=== PATIENT | female | born 1970 | race Caucasian/White ===

== ENCOUNTER 2020-12-19 16:32 | Inpatient (IN) | payer OTHER ==
[~2020-12-19] VITALS: Ht 144.8 cm; Wt 86.2 kg
--- NOTE | 2020-12-19 16:50 | NUR ---
BIB [facility] FOR L SIDED CHEST PAIN SINCE YESTERDAY. ASA 162 AND NITRO X 2 GIVEN IN FIELD. PATIENT A/OX4, BREATHING EVEN AND UNLABORED, NO SOB NOTED. ATTACHED TO THE PLATFORM MATERIAL HANDLER MANAGER.
[2020-12-19] MEDS ORDERED: IV NS 0.9% 1,000 ML IV ONE (17:00)
[2020-12-19] MEDS ORDERED: NITROGLYCERIN PACKET 1 GM PACKET TOP ONE (17:00)
[2020-12-19] MEDS ORDERED: ASPIRIN 325 MG TABLET PO ONE (17:00)
[2020-12-19] MEDS ORDERED: METF-881 PO (17:03)
[2020-12-19] MEDS ORDERED: GLIP10TA11 PO (17:03)
[2020-12-19] MEDS ORDERED: NITROGLYCERIN PACKET 1 GM PACKET ONE (17:03)
[2020-12-19] MEDS ORDERED: LISI-768 PO (17:03)
[2020-12-19] MEDS ORDERED: ATOR40TA PO (17:03)
[2020-12-19] MEDS ORDERED: ASPIRIN 325 MG TABLET ONE (17:03)
--- NOTE | 2020-12-19 17:26 | NUR ---
IV LINE ESTABLISHED, BLOOD DRAWN AND SENT TO LAB
[2020-12-19] MEDS ORDERED: ASPIRIN 81 MG TAB.CHEW PO ONE (17:30)
[2020-12-19 17:32] LABS: BASOPHILS % (AUTO) 0.5 % (0.0-2.0); EOSINOPHILS % (AUTO) 3.4 % (0.0-6.0); HEMATOCRIT 43 % (33-45); HEMOGLOBIN 14.1 g/dL (11.5-14.8); LYMPHOCYTES # (AUTO) 2.5 /CMM (0.8-4.8); LYMPHOCYTES % (AUTO) 36.9 % (20.0-44.0); MEAN CORPUSCULAR HGB CONC 33 g/dl (31.0-36.0); MEAN CORPUSCULAR VOLUME 86 fL (82-100); MONOCYTES # (AUTO) 0.4 /CMM (0.1-1.30); MONOCYTES % (AUTO) 5.9 % (2.0-12.0); NEUTROPHILS # (AUTO) 3.6 /CMM (1.8-8.9); NEUTROPHILS % (AUTO) 53.3 % (43.0-81.0); PLATELET COUNT (AUTO) 269 /CMM (150-450); RED BLOOD CELL COUNT(AUTO) 5.05 MIL/uL (4.0-5.2); WHITE BLOOD COUNT (AUTO) 6.7 K/uL (4.3-11.0)
[2020-12-19 17:42] LABS: CALCIUM, SERUM 8.6 mg/dL (8.5-10.1); CARBON DIOXIDE 28 mmol/L (21-32); CHLORIDE 104 mmol/L (98-107); CREATININE 0.5 mg/dL (0.6-1.3); GLUCOSE 162 mg/dL (74-106); SODIUM SERUM 141 mmol/L (136-145); UREA NITROGEN, BLOOD 9 mg/dL (7-18)
[2020-12-19] MEDS ORDERED: ASPIRIN 81 MG TAB.CHEW ONE ×2 (17:42→17:46)
[2020-12-19] MEDS ORDERED: ACETAMINOPHEN 325 MG TABLET PO PRN (18:30)
[2020-12-19] MEDS ORDERED: MAGNESIUM HYDROXIDE 30 ML UDC PO PRN (18:30)
[2020-12-19] MEDS ORDERED: Z GUARD REMEDY 2 OZ OINT TP PRN (18:30)
[2020-12-19] MEDS ORDERED: NITROGLYCERIN 0.4 MG/TAB BOTTLE SL PRN (18:30)
[2020-12-19] MEDS ORDERED: MAG HYDROX/AL HYDROX/SIMETH 30 ML UDC PO PRN (18:30)
[2020-12-19] MEDS ORDERED: ONDANSETRON HCL/PF 4 MG/2 ML VIAL IVP PRN (18:30)
[2020-12-19] MEDS ORDERED: HYDROMORPHONE INJ 2 MG/ML DISP.SYRIN IV PRN (18:30)
[2020-12-19] MEDS ORDERED: ZOLPIDEM TARTRATE 5 MG TABLET PO PRN (18:30)
--- NOTE | 2020-12-19 19:50 | NUR ---
TRIED GIVING REPORT, NURSING STAFF IS BUSY AT THE MOMENT, WILL RECEIVE CALL BACK.
--- NOTE | 2020-12-19 20:16 | NUR ---
REPORT GIVEN TO PANCHO FRASER FOR BELKIS.
--- NOTE | 2020-12-19 20:25 | NUR ---
CARLITO RECEIVED FROM ER VIA MARISEL A 50 Y/O FEMALE CC OF CHEST PAIN SINCE YESTERDAY. ALERT/ORIENTED X4, SPEAKS MAORI FLUENTLY. NO CHEST PAIN OF THIS TIME. STATED LAST MEAL WAS BREAKFAST. DAUGHTER TO BRING FOOD. HL RIGHT AC 18 GAUGE PATENT. NO SOB. WAS 99% ON RA. V/S STABLE. HERE FOR OBSERVATION SR ON THE MONITOR. ABLE TO PROVIDE ADMISSION INFORMATION. ORIENTED TO ROOM FACILITIES. SAFETY PRECAUTIONS EMPHASIZED WELL UNDERSTOOD. CALL LIGHT WITHIN REACH.
[2020-12-19 22:39] VITALS: BP 140/71
[2020-12-19] MEDS: HYDROCODONE/APAP 5/325MG TABLET PO PRN (23:43)
[2020-12-20 00:07] VITALS: BP 126/70
--- NOTE | 2020-12-20 00:13 | NUR ---
TELERN REMAINS SR ON THE MONITOR. NO CHEST PAIN EXCEPT HEADACHE. NORCO 1 TAB PO ADMINISTERED. BEDREST INSTRUCTED. CLOSELY WATCHED.
--- NOTE | 2020-12-20 03:24 | NUR ---
TELERN SLEEPING APPEARS COMFORTABLE. REMAINS SR ON THE MONITOR
[2020-12-20 04:20] VITALS: BP 126/59
[2020-12-20 06:31] LABS: BASOPHILS % (AUTO) 0.6 % (0.0-2.0); EOSINOPHILS % (AUTO) 3.4 % (0.0-6.0); HEMATOCRIT 40 % (33-45); HEMOGLOBIN 13.1 g/dL (11.5-14.8); LYMPHOCYTES # (AUTO) 2.4 /CMM (0.8-4.8); LYMPHOCYTES % (AUTO) 34.5 % (20.0-44.0); MEAN CORPUSCULAR HGB CONC 33 g/dl (31.0-36.0); MEAN CORPUSCULAR VOLUME 86 fL (82-100); MONOCYTES # (AUTO) 0.5 /CMM (0.1-1.30); MONOCYTES % (AUTO) 6.4 % (2.0-12.0); NEUTROPHILS # (AUTO) 3.9 /CMM (1.8-8.9); NEUTROPHILS % (AUTO) 55.1 % (43.0-81.0); PLATELET COUNT (AUTO) 225 /CMM (150-450); RED BLOOD CELL COUNT(AUTO) 4.68 MIL/uL (4.0-5.2); WHITE BLOOD COUNT (AUTO) 7.1 K/uL (4.3-11.0)
[2020-12-20 06:47] LABS: CALCIUM, SERUM 8.5 mg/dL (8.5-10.1); CREATININE 0.6 mg/dL (0.6-1.3); MAGNESIUM 1.6 mg/dL (1.8-2.4); PHOSPHORUS 4.6 mg/dL (2.5-4.9); POTASSIUM 3.7 mmol/L (3.5-5.1)
[2020-12-20 08:00] VITALS: BP_SYST 119; BP_SYST 120; BP_DIAS 67; BP_DIAS 73
--- NOTE | 2020-12-20 08:00 | NUR ---
RN OPENING NOTE RECEIVED PATIENT IN BED, AO X 4, ABLE TO RESPONDS ALL STIMULI. DENIES CHEST PAIN OR DISTRESS. SKIN IS WARM TO TOUCH KEEP CLEAN/DRY, INTACT IV SITE. RESPIRATORY EVEN AND UNLABORED IN ROOM AIR, NO DISTRESS OBSERVED. KEPT ELEVATED HOB FOR ENSURE AIRWAY AND ASPIRATION PRECAUTION, ALSO LOWEST BED POSITION FOR SAFETY. CALL LIGHT WITHIN REACH, WILL CONTINUE TO MONITOR.
[2020-12-20] MEDS ORDERED: ATORVASTATIN 40 MG TABLET PO SCH (09:00)
[2020-12-20] MEDS ORDERED: LISINOPRIL (5MG) 5 MG TABLET PO SCH (09:00)
--- NOTE | 2020-12-20 09:32 | NUR ---
PATIENT RECEIVED CTA ORDER AND OBTAINED SIGN OF CONSENT.
[2020-12-20] MEDS ORDERED: NITROGLYCERIN 0.4 MG/TAB BOTTLE ONE (10:22)
[2020-12-20] MEDS ORDERED: METOPROLOL TARTRATE INJ 5 MG/5 ML AMPUL ONE ×4 (10:22→11:29)
[2020-12-20] MEDS ORDERED: CT SWABBABLE VALVE TRANS SET 1 EA INFUS.SET MC ONE (10:22)
[2020-12-20] MEDS ORDERED: IOHEXOL-350 100 ML VIAL IV ONE (10:22)
[2020-12-20] MEDS ORDERED: IV NS 0.9% 250 ML IV ONE (10:23)
[2020-12-20] MEDS: METOPROLOL TARTRATE INJ 5 MG/5 ML AMPUL IVP PRN ×8 (11:05→11:40)
--- NOTE | 2020-12-20 11:46 | NUR ---
CTA PROCEDURE WELL TOLERATED BY THE PT. V/S STABLE, KEPT RESTED AND COMFORTABLE. WILL CONTINUE TO MONITOR. REPORT GIVEN TO EVELIO HAYS FOR BELKIS.
[2020-12-20] MEDS: Magnesium 1GM/D5W 100ML PREMIX 100 ML IV SCH ×2 (12:03→13:15)
[2020-12-20] MEDS: HYDROCODONE/APAP 5/325MG TABLET PO PRN (14:45)
[2020-12-20 16:00] VITALS: BP 111/70
--- NOTE | 2020-12-20 17:44 | NUR ---
PATIENT RECEIVED ORDER OK TO D/C HOME, CLARIFIED BY DR. JOSEPH.
--- NOTE | 2020-12-20 18:35 | NUR ---
PATIENT DISCHARGE TO HOME, GIVEN DISCHARGE INSTRUCTION INCLUDE FOLLOW UP PRIMARY MD AND CONTINUE TO HOME MEDICATIONS, AND PATIENT VERBALLY UNDERSTAND. IN STABLE CONDITION, DENIES DISTRESS. PATIENT LEFT FACILITY ACCOMPANIED BY FAMILY TO THE PRIVATE CAR.
== END 2020-12-20 18:35 | disposition home or self-care (01) | DRG 203 ==
LOC: ER 16:45 → TELE 19:46
PROVIDERS: ADMIT Internal Medicine; ATTEND Internal Medicine
DX: M94.0 Chondrocostal junction syndrome [Tietze] (principal); E66.01 Morbid (severe) obesity due to excess calories; E11.9 Type 2 diabetes mellitus without complications; E78.5 Hyperlipidemia, unspecified; Z79.899 Other long term (current) drug therapy; I10 Essential (primary) hypertension; Z79.84 Long term (current) use of oral hypoglycemic drugs; Z68.41 Body mass index [BMI] 40.0-44.9, adult; Z90.49 Acquired absence of other specified parts of digestive tract
CPT/HCPCS: 36415; 71045-TC; 75574; 80048-TC; 80061-TC; 83735-TC; 84100-TC; 84484-TC; 84702-TC; 85025-TC; 87081-TC; 93307-TC; C9803; G0378; J3475; J3490; J7030; J7050; Q9967